=== PATIENT | female | born 1995 | race Caucasian/White ===

== ENCOUNTER 2017-07-25 18:44 | Emergency (ER) | payer OTHER ==
[2017-07-25 18:54] VITALS: BP 111/61; PULSE 99; TEMP 98; BMI 25.6
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
[2017-07-25] MEDS ORDERED: METHOCARBAMOL 500 MG TABLET PO ONE (20:24)
[2017-07-25] MEDS ORDERED: KETOROLAC TROMETHAMINE 30 MG/1 ML VIAL IM ONE (20:24)
[2017-07-25] MEDS ORDERED: KETOROLAC TROMETHAMINE 30 MG/1 ML VIAL ONE (20:27)
[2017-07-25] MEDS ORDERED: METHOCARBAMOL 500 MG TABLET ONE (20:29)
== END 2017-07-25 20:54 | disposition home or self-care (01) ==
LOC: JERFT 18:44
PROC: 3E0233Z Introduction of Anti-inflammatory into Muscle, Percutaneous Approach (ICD-10-PCS; principal; 2017-07-25)
DX: S49.81XA Other specified injuries of right shoulder and upper arm, initial encounter (principal); M62.838 Other muscle spasm; M25.551 Pain in right hip; V49.49XA Driver injured in collision with other motor vehicles in traffic accident, initial encounter; Y92.488 Other paved roadways as the place of occurrence of the external cause; Y93.89 Activity, other specified; Y99.8 Other external cause status
CPT/HCPCS: 84703; 99281-25

== ENCOUNTER 2018-06-22 13:23 | Emergency (ER) | payer BC, OTHER ==
[2018-06-22 13:54] VITALS: TEMP 99; BMI 27.4
[2018-06-22 14:21] VITALS: BP 111/65; PULSE 84
[2018-06-22 14:25] LABS: BASO % 0.3 % (0-2.0); EOS % 0.2 % (0-4.5); HEMATOCRIT 42.8 % (32.4-45.2); HEMOGLOBIN 14.4 GM/dL (10.7-15.3); LYMPH % 24.3 % (8-40); MCH 31.8 pg (25.7-33.7); MCHC 33.6 g/dl (32.0-36.0); MEAN CELL VOLUME 94.7 fl (80-96); MEAN PLT VOLUME 8.2 fl (7.5-11.1); MONO % 7.4 % (3.8-10.2); NEUT % 67.8 % (42.8-82.8); PLATELET COUNT 356 K/MM3 (134-434); RBC 4.52 M/mm3 (3.60-5.2); RDW 13.6 % (11.6-15.6); WHITE BLOOD COUNT 6.7 K/mm3 (4.0-10.0)
--- NOTE | 2018-06-22 14:49 | PDOC ---
Documentation entered by Sumaya Franks SCRIBE, acting as scribe for Olesya Payan MD. Olesya Payan MD: This documentation has been prepared by the scribe, Sumaya Franks SCRIBE, under my direction and personally reviewed by me in its entirety. I confirm that the documentation accurately reflects all work, treatment, procedures, and medical decision making performed by me. Attending Attestation - Resident Resident Name: PeraltaDmitry - ED Attending Attestation I have performed the following: I have examined & evaluated the patient, The case was reviewed & discussed with the resident, I agree w/resident's findings & plan, Exceptions are as noted - HPI HPI: 06/22/18 14:13 The patient is a 23-year-old female, with no past medical history, who presents to the ED with mid-sternal chest pressure and shortness of breath that began today. The patient was waiting for the bus when her symptoms came on. A bystander called 911 and the patient was brought to the ER for further evaluation. She denies experiencing these symptoms in the past. On exam, she reports that she is still experiencing mid-sternal chest pressure. The patient denies any lower extremity swelling, changes in sensation, weakness , or lightheadedness. Denies any recent travel or sick contacts. Denies any fevers, chills, nausea, vomiting, diarrhea, or abdominal pain. Denies having any other symptoms. Allergies: NKA - Physicial Exam PE: GENERAL: Awake, alert, and fully oriented, in no acute distress HEAD: No signs of trauma EYES: PERRLA, EOMI, sclera anicteric, conjunctiva clear ENT: Auricles normal inspection, hearing grossly normal, nares patent, oropharynx clear without exudates. Moist mucosa NECK: Normal ROM, supple, no lymphadenopathy, JVD, or masses LUNGS: Breath sounds equal, clear to auscultation bilaterally. No wheezes, and no crackles. Reproducible tenderness to anterior chest wall HEART: Regular rate and rhythm, normal S1 and S2, no murmurs, rubs or gallops ABDOMEN: Soft, nontender, normoactive bowel sounds. No guarding, no rebound. No masses EXTREMITIES: Normal range of motion, no edema. No clubbing or cyanosis. No cords, erythema, or tenderness NEUROLOGICAL: Cranial nerves II through XII grossly intact. Normal speech, normal gait. Motor and sensation intact SKIN: Warm, Dry, normal turgor, no rashes or lesions noted. - Medical Decision Making Low risk for ACS and PE by clinical eval. Suspect MSK pain. Await labs, CXR. Likely DC home. Heart Score/ECG Review - ECG Impressions Comment:: EKG read 13:36- NSR 82 bpm, no acute ST/T changes
--- NOTE | 2018-06-22 14:51 | PDOC ---
History of Present Illness - General Chief Complaint: Chest Pain Stated Complaint: CHEST PAIN Time Seen by Provider: 06/22/18 13:27 - History of Present Illness Initial Comments: 06/22/18 15:04 23f with no pmh presents to the ED with sudden onset chest pressure and difficulty catching a full breath while walking to the bus stop earlier today. The pain is exacerbated when she takes a deep breath, and located under her sternum. Denies prior DVT/PE's, recent travel, surgeries, leg swelling/pain or coughing blood. Denies use of contraceptive hormones. had similar symptoms in the past but never made her that uncomfortable and usually resolved quickly. 2-cigarette a day smoker. Past History - Past Medical History Allergies/Adverse Reactions: Allergies Allergy/AdvReac Type Severity Reaction Status Date / Time No Known Allergies Allergy Verified 07/25/17 18:50 Home Medications: Ambulatory Orders Methocarbamol [Robaxin -] 1,500 mg PO Q8H PRN #20 tablet 07/25/17 COPD: No Dialysis: No HTN: No - Surgical History Appendectomy: No Cholecystectomy: No - Immunization History Immunization Up to Date: No - Suicide/Smoking/Psychosocial Hx Smoking History: Current every day smoker Have you smoked in the past 12 months: Yes Number of Cigarettes Smoked Daily: 2 Information on smoking cessation initiated: No Hx Alcohol Use: No Drug/Substance Use Hx: No Substance Use Type: None Review of Systems - Review of Systems Able to Perform ROS?: Yes Is the patient limited Arabic proficient: No Constitutional: No: Symptoms Reported HEENTM: No: Symptoms Reported Respiratory: Yes: See HPI Cardiac (ROS): Yes: See HPI ABD/GI: No: Symptoms Reported : No: Symptoms Reported Musculoskeletal: No: Symptoms Reported All Other Systems: Reviewed and Negative *Physical Exam - Vital Signs Last Vital Signs Temp Pulse Resp BP Pulse Ox 99.0 F 84 16 111/65 98 06/22/18 14:20 06/22/18 14:20 06/22/18 14:20 06/22/18 14:20 06/22/18 14:20 - Physical Exam General Appearance: Yes: Nourished, Appropriately Dressed. No: Apparent Distress HEENT: positive: EOMI, NAY, Normal ENT Inspection Respiratory/Chest: positive: Chest Tender (sternal), Lungs Clear, Normal Breath Sounds. negative: Respiratory Distress Cardiovascular: positive: Regular Rhythm, Regular Rate, S1, S2 Gastrointestinal/Abdominal: positive: Normal Bowel Sounds, Flat, Soft. negative : Tender Extremity: positive: Normal Capillary Refill, Normal Inspection, Normal Range of Motion Integumentary: positive: Normal Color, Dry, Warm Neurologic: positive: Fully Oriented, Alert, Normal Mood/Affect, Normal Response , Motor Strength 5/5 ED Treatment Course - LABORATORY CBC & Chemistry Diagram: 06/22/18 14:00 06/22/18 14:00 - ADDITIONAL ORDERS Additional order review: Laboratory Results 06/22/18 06/22/18 14:00 14:00 Sodium 137 Potassium 4.6 Chloride 106 Carbon Dioxide 28 Anion Gap 3 L BUN 8 Creatinine 0.7 Creat Clearance w eGFR 104.64 Random Glucose 93 Calcium 9.4 Total Bilirubin 0.4 AST 14 L ALT 22 Alkaline Phosphatase 77 Troponin I < 0.02 Total Protein 8.2 Albumin 4.4 Serum , Qual Negative 06/22/18 14:00 RBC 4.52 MCV 94.7 MCHC 33.6 RDW 13.6 MPV 8.2 Neutrophils % 67.8 Lymphocytes % 24.3 Monocytes % 7.4 Eosinophils % 0.2 Basophils % 0.3 - RADIOLOGY Radiology Studies Ordered: Category Date Time Status CHEST PA & LAT [RAD] Stat Radiology 06/22/18 14:51 Ordered Medical Decision Making - Medical Decision Making 06/22/18 15:24 PE vs Mi vs costochondritis 23f with sternal chest pain and sob. Patient can be PERC'ed out and Well'd out. No need to send a D-dimer. Preg negative. Chest xray negative for infiltrates. Trop neg, EKG: Normal sinus rhythm. Low suspicion for IN or cardiac etiology. This is likely musculoskeletal, perhaps costochondritis. Ok to discharge with follow up. *DC/Admit/Observation/Transfer Diagnosis at time of Disposition: Musculoskeletal pain - Discharge Dispostion Disposition: HOME Condition at time of disposition: Stable Decision to Admit order: No - Referrals - Patient Instructions Printed Discharge Instructions: DI for Costochondritis Additional Instructions: Follow up with your primary care provider within the next 7 days. Come back to the Emergency department for any new, worsening or concerning symptoms. - Post Discharge Activity
[2018-06-22 14:59] LABS: ALBUMIN 4.4 g/dl (3.4-5.0); ALK PHOS 77 U/L (45-117); ANION GAP 3 MMOL/L (8-16); BILIRUBIN,TOTAL 0.4 mg/dL (0.2-1); BLOOD UREA NITROGEN 8 mg/dL (7-18); CALCIUM 9.4 mg/dL (8.5-10.1); CHLORIDE 106 mmol/L (98-107); CO2 28 mmol/L (21-32); CREATININE 0.7 mg/dL (0.55-1.3); GLUCOSE,RANDOM 93 mg/dL (74-106); POTASSIUM 4.6 mmol/L (3.5-5.1); SGOT/AST 14 U/L (15-37); SGPT/ALT 22 U/L (13-61); SODIUM 137 mmol/L (136-145); TOT PROT 8.2 g/dl (6.4-8.2)
--- NOTE | 2018-06-22 15:01 | EKG ---
Test Reason : Blood Pressure : / mmHG Vent. Rate : 082 BPM Atrial Rate : 082 BPM P-R Int : 136 ms QRS Dur : 094 ms QT Int : 362 ms P-R-T Axes : 023 062 018 degrees QTc Int : 422 ms NORMAL SINUS RHYTHM NORMAL ECG NO PREVIOUS ECGS AVAILABLE Confirmed by YANG KNIGHT, DAO ([id number]) on 06/22/2018 3:01:23 PM Referred By: Confirmed By:DAO SORIA MD
== END 2018-06-22 15:41 | disposition home or self-care (01) ==
LOC: JER 13:23
DX: R07.89 Other chest pain (principal)
CPT/HCPCS: 36415; 71046-TC-FY; 80053; 84484; 84703; 85025; 93005; 93010; 99285-25

== ENCOUNTER 2018-11-30 13:33 | Emergency (ER) | payer BC ==
[2018-11-30 13:41] VITALS: BP 125/66; PULSE 78; TEMP 98; BMI 25.7
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
== END 2018-11-30 15:01 | disposition home or self-care (01) ==
LOC: JER 13:33
PROC: BY4CZZZ Ultrasonography of Second Trimester, Single Fetus (ICD-10-PCS; principal; 2018-11-30)
DX: O26.892 Other specified pregnancy related conditions, second trimester (principal); M25.552 Pain in left hip; Z3A.14 14 weeks gestation of pregnancy; W10.8XXA Fall (on) (from) other stairs and steps, initial encounter; Y93.89 Activity, other specified; Y92.89 Other specified places as the place of occurrence of the external cause; Y99.8 Other external cause status
CPT/HCPCS: 76815; 99282-25